=== PATIENT | female | born 1960 | race Caucasian/White ===

== ENCOUNTER 2016-05-18 08:49 | Outpatient (CLI) | payer OTHER | END 2016-05-18 08:50 | disposition home or self-care (01) | DX: Z00.00 Encounter for general adult medical examination without abnormal findings (principal); G25.81 Restless legs syndrome; M81.0 Age-related osteoporosis without current pathological fracture; E55.9 Vitamin D deficiency, unspecified; Z79.899 Other long term (current) drug therapy ==

== ENCOUNTER 2016-12-20 10:20 | Outpatient (CLI) | payer OTHER ==
--- NOTE | 2016-12-21 11:45 | Mammography Report ---
DIGITAL SCREENING MAMMOGRAM: 12/20/2016 COMPARISON: 05/27/2015, 05/20/2013, 11/16/2010, 01/18/2009, 01/13/2008. TECHNIQUE: Bilateral digital CC and MLO projections. FINDINGS: There are scattered fibroglandular densities. There is a stereotactic biopsy clip in the right upper inner quadrant. There is no dominant mass, architectural distortion, suspicious new micr ocalcifications, skin thickening, or interval change. IMPRESSION: NEGATIVE. BIRADS CATEGORY 1. SUGGEST RETURN TO ROUTINE SCREENING IN 12 MONTHS. STANDARD QUALIFYING STATEMENTS 1. This examination was reviewed with the aid of Computer-Aided Detection (CAD). 2. A negative or benign imaging report should not delay biopsy if clinically suspicious findings are present. Consider surgical consultation if warranted. More than 5% of cancers are not identified by i maging. 3. Dense breasts may obscure an underlying neoplasm. JOB #: [id number] EXT JOB #:[id number]
== END 2016-12-20 10:21 | disposition home or self-care (01) ==
LOC: DI 10:20
PROVIDERS: ATTEND Physician Assistant Medical
DX: Z12.31 Encounter for screening mammogram for malignant neoplasm of breast (principal)
CPT/HCPCS: 77067

== ENCOUNTER 2016-12-21 15:12 | Outpatient (CLI) | payer OTHER ==
--- NOTE | 2016-12-22 12:49 | DEXA Report ---
DEXA SCAN: 12/21/2016 CLINICAL HISTORY: Osteoporosis followup. TECHNIQUE: Dual energy x-ray absorptiometry (DXA) was performed on a [employer] system. Regions measured are the AP spine, femoral neck, and, if needed, forearm. COMPARISON: 10/07/2015. In accordance with the International Society for Clinical Densitometry (ISCD) guidelines, data from previous exams may be reanalyzed using current recommendations and techniques. This is done to allow a more accurate basis for comparison with the current study. FINDINGS The data for the lumbar spine is as follows: REGION BMD (g/cm/cm) T-SCORE Z-SCORE L1 0.845 -2.4 -1.1 L2 0.813 -3.2 -1.9 L3 0.927 -2.3 -1.0 L4 0.894 -2.6 -1.3 TOTAL 0.873 -2.6 -1.3 NOTE: All evaluable vertebrae are used for classification. The data for the hip is as follows: REGION BMD (g/cm/cm) T-SCORE Z-SCORE Neck 0.755 -2.0 -0.7 TOTAL 0.799 -1.7 -0.7 NOTE: The femoral neck or total proximal femur, whichever is lowest, is used for classification. DXA RESULTS SUMMARY: Spine SCAN DATE AGE BMD T-SCORE BMD CHANGE VS BASELINE BMD CHANGE VS PREVIOUS 12/21/2016 56 0[age]873 --- 0.073 9.1 10/07/2015 54 0.800 --- --- --- DXA RESULTS SUMMARY: Total hip SCAN DATE AGE BMD T-SCORE BMD CHANGE VS BASELINE BMD CHANGE VS PREVIOUS 12/21/2016 56 0[age]799 --- 0.034 4.4 10/07/2015 54 0.765 --- --- --- * Denotes significant change at the 95% confidence level. Denotes dissimilar scan types or analysis methods. IMPRESSION: THE WOR[employer] CLASSIFICATION BASED ON THE INTERNATIONAL REFERENCE STANDARDS IS OSTEOPOROSIS BASED ON THE LUMBAR SPINE. THE FRACTURE RISK IS HIGH. THERE HAS BEEN A 9.1% INCREASE IN BONE MINERAL DENSITY IN THE LUMBAR SPINE SINCE THE PRIOR STUDY. RECOMMENDATION: Patients with diagnosis of osteoporosis or osteopenia should have regular bone mineral density assessment. For those eligible for Medicare, routine testing is allowed once every 2 years. Testing frequency can be increased for patients who have rapidly progressing disease or for those who are receiving medical therapy to restore bone mass. COMMENT: World Health Organization (WHO) definitions for osteoporosis and osteopenia: NORMAL BMD: T-score at -1.0 or higher, fracture risk is low. OSTEOPENIA BMD: T-score between -1.0 and -2.5, fracture risk is increased. OSTEOPOROSIS BMD: T-score at -2.5 or lower, fracture risk high. National Osteoporosis Foundation recommends: 1. Obtain adequate dietary calcium (at least 1200 mg per day) and vitamin D (400 -800 international units per day). 2. Participate, as appropriate, in regular weightbearing and muscle- strengthening exercise. 3. Avoid tobacco use and reduce alcohol and caffeine intake. 4. For more detailed information see the website at www.NOF.org. MTDD
== END 2016-12-21 15:13 | disposition home or self-care (01) ==
LOC: DI 15:12
PROVIDERS: ATTEND Physician Assistant Medical
DX: M81.0 Age-related osteoporosis without current pathological fracture (principal)
CPT/HCPCS: 77080

== ENCOUNTER 2017-04-12 13:00 | Outpatient (CLI) | payer OTHER ==
--- NOTE | 2017-04-13 10:08 | Ultrasound Report ---
DATE OF SERVICE: 04/12/2017 THYROID ULTRASOUND: 04/12/2017 CLINICAL INDICATION: Left thyroid nodule. COMPARISON: 03/14/2016. TECHNIQUE: Real-time scanning was performed with customer engagement representative static images obtained. FINDINGS: The right lobe measures 5.0 x 1.3 x 0.7 cm, and the left lobe measures 5.0 x 1.6 x 1.2 cm. The isthmus measures 2 mm. Multiple bilateral cysts are again seen, with the largest, in the upper pole of the left lobe, measuring 2.0 x 1.6 x 1.5 cm. No suspicious solid thyroid nodule is seen. IMPRESSION: MULTIPLE THYROID CYSTS. NO SUSPICIOUS SOLID NODULE IS IDENTIFIED. NO SIGNIFICANT INTERVAL CHANGE. TD: 04/13/2017 11:07
== END 2017-04-12 13:01 | disposition home or self-care (01) ==
LOC: DI 13:00
PROVIDERS: ATTEND Physician Assistant Medical
DX: E04.2 Nontoxic multinodular goiter (principal)
CPT/HCPCS: 76536

== ENCOUNTER 2017-05-18 09:13 | Outpatient (CLI) | payer OTHER ==
[2017-05-18 09:27] LABS: BASOPHILS # (AUTO) 0.1 10^3/uL (0.0-0.1); EOSINOPHILS # (AUTO) 0.1 10^3/uL (0.0-0.7); LYMPHOCYTES # (AUTO) 1.4 10^3/uL (1.5-3.5); LYMPHOCYTES % (AUTO) 41.8 %; MEAN CORPUSCULAR HEMOGLOBIN 32.5 pg (27.0-31.0); MEAN CORPUSCULAR HGB CONC 33.9 g/dL (32.0-36.0); MEAN CORPUSCULAR VOLUME 95.8 fL (81.0-99.0); MEAN PLATELET VOLUME 7.5 fL (7.9-10.8); MONOCYTES # (AUTO) 0.3 10^3/uL (0.0-1.0); MONOCYTES % (AUTO) 9.4 %; NEUTROPHILS # (AUTO) 1.5 10^3/uL (1.5-6.6); NEUTROPHILS % (AUTO) 43.8 %; PLT - PLATELET COUNT 214 10^3/uL (130-450); RED BLOOD COUNT 4.62 10^6/uL (4.20-5.40); WHITE BLOOD COUNT 3.4 x10^3/uL (4.8-10.8)
[2017-05-18 09:44] LABS: ALBUMIN 4.5 g/dL (3.2-5.5); ALBUMIN/GLOBULIN RATIO 1.8 (1.0-2.2); ALKALINE PHOSPHATASE 47 IU/L (42-121); ALT ALANINE AMINOTRANSFERASE 15 IU/L (10-60); AST ASPARTATE AMINOTRANSFERASE 24 IU/L (10-42); BILIRUBIN,TOTAL 0.8 mg/dL (0.2-1.0); BUN - BLOOD UREA NITROGEN 14 mg/dL (6-20); CALCIUM 9.5 mg/dL (8.5-10.3); CARBON DIOXIDE - CO2 26 mmol/L (21-32); CHLORIDE 100 mmol/L (101-111); CHOL/HDL RATIO 3.5 (<4.4); CHOLESTEROL 186 mg/dL; CREATININE 0.7 mg/dL (0.4-1.0); GFR - MDRD 86 (>89); GLUCOSE 87 mg/dL (70-100); HDL CHOLESTEROL 53 mg/dL; LDL CHOLESTEROL,CALCULATED 112 mg/dL; LDL/HDL RATIO 2.1 (<4.4); SODIUM 138 mmol/L (135-145); VLDL CHOLESTEROL 21 mg/dL
== END 2017-05-18 09:14 | disposition home or self-care (01) ==
LOC: LAB 09:13
PROVIDERS: ATTEND Physician Assistant Medical
DX: Z00.00 Encounter for general adult medical examination without abnormal findings (principal); E55.9 Vitamin D deficiency, unspecified; M81.0 Age-related osteoporosis without current pathological fracture; E04.1 Nontoxic single thyroid nodule; Z79.899 Other long term (current) drug therapy
CPT/HCPCS: 36415; 80053; 80061; 82306; 83721; 84443; 85025

== ENCOUNTER 2017-11-20 14:57 | Outpatient (CLI) | payer OTHER ==
--- NOTE | 2017-11-20 16:39 | DEXA Report ---
Procedure Date: 11/20/2017 Accession Number: [id number] / [id number] Procedure: DEX - Dexa Spine and/or Hip CPT Code: FULL RESULT: EXAM: DUAL EMISSION X-RAY ABSORPTIOMETRY (DXA) SCAN EXAM DATE: 11/20/2017 03:32 PM. CLINICAL HISTORY: Prednisone use, osteoporosis . On Alendronate COMPARISON: 12/21/2016. ADDITIONAL PATIENT INFORMATION: None. TECHNIQUE: Dual energy x-ray absorptiometry (DXA) was performed on a [employer] System. Regions measured at the AP spine, femoral neck, and if needed, forearm. TECHNIQUE LIMITATIONS/EXCLUSIONS: None FINDINGS: Lumbar Spine: Bone mineral density 0.857 g/sq cm, T-score -2.7, Z-score -1.3. Bone mineral density change from previous: -1.8%. Femoral Neck: Bone mineral density 0.771 g/sq cm, T-score -1.9, Z-score -0.6. Total Hip: Bone mineral density 0.804 g/sq cm, T-score -1.6, Z-score -0.6. Bone mineral density change from previous: 0.6%. IMPRESSION: Osteoporosis. The fracture risk is high. World Health Organization (WHO) Reporting guidelines (based on lowest BMD) for postmenopausal and perimenopausal women, men age 50 years and older: Normal: T-score at or greater than -1.0 Osteopenia: T-score between -1.1 to -2.4 Osteoporosis: T-score at or less than -2.5 RADIA
== END 2017-11-20 14:58 | disposition home or self-care (01) ==
LOC: DI 14:57
PROVIDERS: ATTEND Physician Assistant Medical
DX: M81.0 Age-related osteoporosis without current pathological fracture (principal); Z79.899 Other long term (current) drug therapy
CPT/HCPCS: 77080

== ENCOUNTER 2018-01-17 08:00 | Outpatient (CLI) | payer OTHER ==
[2018-01-17 10:20] LABS: BASOPHILS % (AUTO) 1.4 %; EOSINOPHILS % (AUTO) 1.7 %; HGB - HEMOGLOBIN 14.7 g/dL (12.0-16.0); LYMPHOCYTES % (AUTO) 37.4 %; MEAN CORPUSCULAR HEMOGLOBIN 32.6 pg (27.0-31.0); MEAN CORPUSCULAR HGB CONC 34.4 g/dL (32.0-36.0); MEAN CORPUSCULAR VOLUME 94.9 fL (81.0-99.0); MEAN PLATELET VOLUME 8.2 fL (7.9-10.8); MONOCYTES # (AUTO) 0.3 10^3/uL (0.0-1.0); MONOCYTES % (AUTO) 9.5 %; NEUTROPHILS # (AUTO) 1.4 10^3/uL (1.5-6.6); PLT - PLATELET COUNT 207 10^3/uL (130-450); RED CELL DISTRIBUTION WIDTH 12.7 % (12.0-15.0); WHITE BLOOD COUNT 2.7 x10^3/uL (4.8-10.8)
[2018-01-17 10:36] LABS: ALBUMIN 4.5 g/dL (3.2-5.5); ALBUMIN/GLOBULIN RATIO 1.6 (1.0-2.2); ALKALINE PHOSPHATASE 53 IU/L (42-121); ALT ALANINE AMINOTRANSFERASE 14 IU/L (10-60); AST ASPARTATE AMINOTRANSFERASE 25 IU/L (10-42); BILIRUBIN,TOTAL 0.8 mg/dL (0.2-1.0); BUN - BLOOD UREA NITROGEN 9 mg/dL (6-20); CREATININE 0.7 mg/dL (0.4-1.0); GFR - MDRD 86 (>89); LIPASE 31 U/L (22-51); TOTAL PROTEIN 7.3 g/dL (6.7-8.2)
[2018-01-17 10:37] LABS: CRP - C-REACTIVE PROTEIN < 1.0 mg/dL (0-1.0)
[2018-01-17 10:41] LABS: PLATELET MORPHOLOGY RARE GIANT PLATELETS (NORMAL)
[2018-01-17 10:44] LABS: CALCIUM 9.5 mg/dL (8.5-10.3); CARBON DIOXIDE - CO2 31 mmol/L (21-32); CHLORIDE 103 mmol/L (101-111); GLUCOSE 89 mg/dL (70-100); SODIUM 142 mmol/L (135-145)
[2018-01-17 15:42] LABS: PLATELET ESTIMATE, MANUAL NORMAL (130-450,000) (NORMAL); RBC MORPHOLOGY (MULTIPLE) NORMAL APPEARANCE (NORMAL)
== END 2018-01-17 08:01 ==
LOC: LAB.R 08:00
PROVIDERS: ATTEND Physician Assistant Medical
DX: R10.84 Generalized abdominal pain (principal); R07.9 Chest pain, unspecified; R31.9 Hematuria, unspecified; E04.1 Nontoxic single thyroid nodule
CPT/HCPCS: 80053; 83690; 84443; 85025; 85651; 86140

== ENCOUNTER 2018-01-18 07:07 | Outpatient (CLI) | payer OTHER ==
[2018-01-18] MEDS ORDERED: IOPAMIDOL-300 100 ML VIAL ONE (07:20)
[2018-01-18] MEDS ORDERED: IOPAMIDOL-300 50 ML VIAL ONE (07:20)
[2018-01-18] MEDS ORDERED: IOPAMIDOL-300 100 ML VIAL IVP ONE (07:38)
[2018-01-18] MEDS ORDERED: IOPAMIDOL-300 50 ML VIAL PO ONE (07:38)
--- NOTE | 2018-01-18 08:40 | CT Report ---
Reason: ABDOMINAL PAIN, GENERALIZED, HEMATURIA, CHEST PAIN Procedure Date: 01/18/2018 Accession Number: [id number] / [id number] Procedure: CT - Abdomen/Pelvis W/ CPT Code: FULL RESULT: EXAM: CT ABDOMEN AND PELVIS EXAM DATE: 01/18/2018 08:03 AM. CLINICAL HISTORY: ABDOMINAL PAIN, GENERALIZED, HEMATURIA, CHEST PAIN. COMPARISONS: CT from 02/06/2014. Ultrasound from 08/26/2014 and 02/13/2013. TECHNIQUE: Routine helical CT imaging was performed through the abdomen and pelvis. IV contrast: 100 cc of Isovue-300. Enteric contrast: Positive. Reconstructions: Coronal and sagittal. In accordance with CT protocol optimization, one or more of the following dose reduction techniques were utilized for this exam: automated exposure control, adjustment of mA and/or KV based on patient size, or use of iterative reconstructive technique. FINDINGS: Lung Bases: Lung bases are clear. Included portions of the heart are unremarkable. Liver: Low-attenuation lesion in the posterior right lobe of the liver measuring 10 mm. This lesion was described as a hemangioma on the ultrasound from 02/06/2014. On the current study there is slight nodular enhancement along the inferior aspect of the lesion. Patent portal vein. No other hepatic lesions. Gallbladder/Bile Ducts: Status post cholecystectomy. No biliary ductal dilatation. Spleen: Normal. Pancreas: Normal. Adrenal Glands: Normal. Kidneys: Kidneys enhance symmetrically. Mid posterior right renal cyst is seen measuring 17 mm also seen in the lower pole of the right kidney measuring 6 mm. No nephrolithiasis. No hydronephrosis. No ureteral dilatation or ureteral calculi. Peritoneal Cavity/Bowel: Stomach is mild to moderately distended and unremarkable. No small bowel obstruction or small bowel wall thickening. No free air. The majority of the small bowel is decompressed. Terminal ileum is unremarkable. Small to moderate volume of stool is seen in the colon. No diverticulitis. No enlarged retroperitoneal or mesenteric lymph nodes. The appendix is well visualized and normal. Pelvic Organs: No adnexal masses. Heterogeneous lesion is seen along the right lower uterine segment of the uterus measuring 1 cm which may represent a uterine myoma. Trace pelvic free fluid. No pelvic adenopathy. Urinary bladder is mildly distended. No bladder calculi. No distinct bladder wall thickening. Vasculature: Vascular calcifications. No aneurysm. Mesenteric vasculature is patent. Bones: Degenerative changes of lower thoracic and lumbar spine. Lumbar facet arthropathy. Mild degenerative changes of both hip joints. Changes are seen from prior internal fixation of the proximal right femur. No bony lesions. Other: None. IMPRESSION: 1. Normal appendix. 2. Small to moderate volume of stool in the colon. No bowel obstruction. No bowel wall thickening. 3. Right renal cysts. No nephrolithiasis. No hydronephrosis. No bladder calculi. No focal bowel or bladder wall thickening noting that the urinary bladder is only mildly distended. 4. Status post cholecystectomy. 5. Stable right hepatic lobe 10 mm lesion previously reported as a hemangioma. RADIA
== END 2018-01-18 07:08 | disposition home or self-care (01) ==
LOC: DI 07:07
PROVIDERS: ATTEND Physician Assistant Medical
DX: R10.84 Generalized abdominal pain (principal); R31.0 Gross hematuria; R07.9 Chest pain, unspecified; N28.1 Cyst of kidney, acquired; D18.03 Hemangioma of intra-abdominal structures; Z90.49 Acquired absence of other specified parts of digestive tract
CPT/HCPCS: 74177; Q9967

== ENCOUNTER 2018-02-14 11:08 | Outpatient (CLI) | payer OTHER ==
--- NOTE | 2018-02-14 12:30 | XRAY Report ---
Reason: THYROID NODULE, LEFT Procedure Date: 02/14/2018 Accession Number: [id number] / [id number] Procedure: XR - Chest 2 View X-Ray CPT Code: 86631 FULL RESULT: EXAM: CHEST RADIOGRAPHY EXAM DATE: 02/14/2018 11:34 AM. CLINICAL HISTORY: Dull chest pain for 1 month. COMPARISON: Chest 1 view 01/28/2014 8:03 PM. TECHNIQUE: 2 views. FINDINGS: Lungs/Pleura: There is a stable 8 mm nodule superimposing over the left mid lung compared to 01/28/2014. Stable hyperlucency to the upper lung zones with mild pleural-parenchymal scarring change. No confluent airspace opacity, effusion or extra ventilatory air. Mediastinum: Heart and mediastinal contours are unremarkable. Other: None. IMPRESSION: 1. Stable 8 mm left pulmonary nodule since 2013, consistent with benign etiology. 2. Stable stigmata of probable upper lobe emphysema. 3. No infiltrates. RADIA
--- NOTE | 2018-02-14 18:56 | Ultrasound Report ---
Reason: THYROID NODULE, LEFT Procedure Date: 02/14/2018 Accession Number: [id number] / [id number] Procedure: US - Head or Neck Soft Tissue CPT Code: FULL RESULT: EXAM: THYROID ULTRASOUND EXAM DATE: 02/14/2018 12:19 PM. CLINICAL HISTORY: THYROID NODULE, LEFT. COMPARISON: HEAD OR NECK SOFT TISSUE 04/12/2017 12:54 PM. TECHNIQUE: Real time sonographic imaging of the thyroid was performed by the complaint specialist. Multiple mechanical service representative static images were saved for review. FINDINGS: THYROID GLAND: Right Lobe: 4.7 x 1.6 x 1.1 cm, volume 4 cc. Normal background echotexture. Right Lobe Nodules: Stable subcentimeter cysts and hypoechoic nodules. Left Lobe: 4.7 x 1.9 x 1.4 cm, volume 7 cc. Normal background echotexture. Left Lobe Nodules: The cyst in the upper pole of the left lobe is no complicated, with likely blood products centrally. It has increased slightly in size, now measuring 2.1 x 1.6 x 1.5 cm (previously 2.0 x 1.6 x 1.5 cm). Other subcentimeter cysts and hypoechoic nodules are again noted. Isthmus: 0.1 cm AP. Isthmic Nodules: None. LYMPH NODES: No adenopathy demonstrated in the central or lateral compartment. OTHER: None. IMPRESSION: Dominant cyst in the upper pole of the left lobe is now complicated, with echogenic material in the central portion. Management recommendations are based on 2015 [place] [employer] Management Guidelines for Adult Patients with Thyroid Nodules and Differentiated Thyroid Cancer. RADIA
== END 2018-02-14 11:09 | disposition home or self-care (01) ==
LOC: DI 11:08
PROVIDERS: ATTEND Physician Assistant Medical
DX: E04.1 Nontoxic single thyroid nodule (principal); R91.1 Solitary pulmonary nodule
CPT/HCPCS: 71046; 76536

== ENCOUNTER 2018-02-28 13:12 | Outpatient (CLI) | payer OTHER ==
[2018-02-28] MEDS ORDERED: BUFFERED LIDOCAINE 10 ML SYRINGE IU ONE (14:32)
--- NOTE | 2018-02-28 15:55 | Ultrasound Report ---
Reason: THYROID NODULE,LEFT Procedure Date: 02/28/2018 Accession Number: [id number] / [id number] Procedure: US - Fine Needle Aspiration CPT Code: FULL RESULT: PROCEDURE: ULTRASOUND GUIDED BIOPSY, THYROID FNA PREOPERATIVE DIAGNOSIS: Mass in left thyroid nodule, possibly malignant. POSTOPERATIVE DIAGNOSIS: Same TECHNIQUE: Following written and oral informed consent including procedure risks and alternatives, the patient was brought to the ultrasound suite and positioned. Using local anesthesia, sterile technique, and direct ultrasound control, a series of 4 FNA needles was advanced to the mass. An FNA aspiration/shaving technique was utilized. Each needle was removed. The patient tolerated the procedure well and there were no immediate complications. ANESTHESIA: Local only. SECTION GANG: Dr. Salinas. ESTIMATED BLOOD LOSS: Minimal FLUOROSCOPY TIME: None. COMPLICATIONS: None. CONDITION: Good. SPECIMEN: Fine-needle aspiration x 4. IMPLANTS: None. FINDINGS: Real-time ultrasound performed with static images saved to the PACS demonstrating the needle directed into the mass. IMPRESSION: Uncomplicated ultrasound guided fine needle aspiration biopsy as described. Pathology results will be reported separately. RADIA
== END 2018-02-28 13:13 | disposition home or self-care (01) ==
LOC: DI 13:12
PROVIDERS: ATTEND Physician Assistant Medical
DX: E04.1 Nontoxic single thyroid nodule (principal)
CPT/HCPCS: 10022

== ENCOUNTER 2018-03-04 19:18 | Emergency (ER) | payer OTHER ==
--- NOTE | 2018-03-04 21:15 | ED Physician Documentation ---
PD HPI NECK PAIN - Stated complaint Stated Complaint: NECK/BACK PX - Chief complaint Chief Complaint: Back Pain - History obtained from History obtained from: Patient - History of Present Illness Timing - onset: Chronic (various timeframes (see below)) Pain level now: 10 Location: Upper, Mid, Lower, Other (midline, radiating bilaterally (R>L)) Quality: Pain Associated symptoms: No: Fever, Weakness, Numbness, Incontinent of urine, Unable to urinate, Incontinent of stool Improves with: Rest Worsened by: Movement Recently seen: Not recently seen - Additional information Additional information: c/o back pain, length of her entire back, mostly midline but also radiates bilaterally, R>L. This has been going on for years, worse past few months. She usually takes two percocet in the evening for this. Presents due to pain being worse. Also c/o nausea x 1 week. Denies vomiting. She says she had CT a month ago (records indicate it was 01/18/18) of A/P for "stomach issues" (per patient), without notable abnormality found. Review of Systems Constitutional: denies: Fever, Chills, Sweats Cardiac: reports: Reviewed and negative Respiratory: reports: Reviewed and negative GI: reports: Abdominal Pain, Nausea. denies: Vomiting : reports: Frequency. denies: Dysuria Musculoskeletal: reports: Neck pain, Back pain. denies: Extremity pain, Joint pain Neurologic: denies: Generalized weakness, Focal weakness, Numbness PD PAST MEDICAL HISTORY - Past Medical History Past Medical History: Yes Cardiovascular: None Respiratory: None Neuro: None Endocrine/Autoimmune: None GI: GERD HEENT: None Psych: None Musculoskeletal: Osteoarthritis, Osteoporosis, Fatigue, Scoliosis, Chronic back pain Derm: None - Past Surgical History Past Surgical History: No General: Cholecystectomy Ortho: Other HEENT: Tonsil/Adenoidectomy - Present Medications Home Medications: Ambulatory Orders Medication Instructions Recorded Confirmed Gabapentin 300 mg PO QPM 08/07/15 08/07/15 oxyCODONE/ACET 5/325 [Percocet 5 1 tab PO DAILY PRN 08/07/15 08/07/15 mg/325 mg] Metoclopramide [Reglan] 10 mg PO Q6H PRN #14 tablet 03/04/18 predniSONE [Prednisone] 40 mg PO DAILY 3 Days #8 tablet 03/04/18 - Allergies Allergies/Adverse Reactions: Allergies Allergy/AdvReac Type Severity Reaction Status Date / Time Sulfa (Sulfonamide Allergy Intermediate Hives Verified 03/04/18 19:35 Antibiotics) - Social History Does the pt smoke?: No Smoking Status: Never smoker Does the pt drink ETOH?: No Does the pt have substance abuse?: No - Immunizations Immunizations are current?: Yes - POLST Patient has POLST: No PD ED PE NORMAL - Vitals Vital signs reviewed: Yes - General General: Alert and oriented X 3, No acute distress, Well developed/nourished - HEENT HEENT: Moist mucous membranes - Neck Neck: Supple, no meningeal sign - Cardiac Cardiac: RRR, No murmur - Respiratory Respiratory: No respiratory distress, Clear bilaterally - Abdomen Abdomen: Soft - Back Back: No CVA TTP, No spinal TTP - Derm Derm: Normal color, Warm and dry, No rash - Neuro Neuro: Alert and oriented X 3, heel seater 2-12 intact, No motor deficit, No sensory deficit, Normal speech Results - Vitals Vitals: Vital Signs - 24 hr 03/04/18 03/04/18 03/04/18 19:32 20:00 20:33 Temperature 36.4 C L Heart Rate 75 Respiratory 16 16 17 Rate Blood Pressure 137/70 H O2 Saturation 99 03/04/18 03/04/18 03/04/18 21:55 22:32 23:02 Temperature 36.4 C L Heart Rate 64 Respiratory 17 17 16 Rate Blood Pressure 142/86 H O2 Saturation 100 03/04/18 23:24 Temperature Heart Rate Respiratory 16 Rate Blood Pressure O2 Saturation Oxygen O2 Source Room air - Labs Labs: Laboratory Tests 03/04/18 03/04/18 21:50 21:50 WBC 3.3 L RBC 4.76 Hgb 15.0 Hct 45.5 MCV 95.7 MCH 31.5 H MCHC 32.9 RDW 12.9 Plt Count 186 MPV 8.5 Neut # (Auto) 1.7 Lymph # (Auto) 1.1 L [place] # (Auto) 0.4 Eos # (Auto) 0.1 Baso # (Auto) 0.0 Absolute Nucleated RBC 0.00 Nucleated RBC % 0.1 Sodium 138 Potassium 3.8 Chloride 102 Carbon Dioxide 28 Anion Gap 8.0 BUN 15 Creatinine 0.8 Estimated GFR (MDRD) 73 L Glucose 107 H Calcium 9.0 Total Bilirubin 0.6 AST 24 ALT 15 Alkaline Phosphatase 65 Total Protein 6.5 L Albumin 3.9 Globulin 2.6 Albumin/Globulin Ratio 1.5 Lipase 45 PD MEDICAL DECISION MAKING - ED course Complexity details: reviewed results, re-evaluated patient, considered differential, d/w patient ED course: On reevaluation, patient reported feeling some improvement with her back pain and feels she can go home and take her usual percocet and get adequate relief. She did not take the decadron because 1) she still had some nausea and 2) she seems to recall having some difficulty sleeping with steroids in the past. I offered another dose of zofran or else reglan for the nausea; she says the zofran did not help at all and thus given reglan. Again, she feels well enough to go home and thus won't wait for the reglan's effect. Will return if worse. Results of tests reviewed, including low WBC (which she has had for a few months now), and I instructed her to discuss this with her doctor to make sure they are aware of the result. Departure - Departure Disposition: 01 Home, Self Care Clinical Impression: Back pain, Nausea Condition: Good Instructions: ED Neck Back Pain General, ED Nausea Vomiting Follow-Up: Dari Cummings PA-C [Primary Care Provider] - Within 1 week Prescriptions: Metoclopramide [Reglan] 10 mg PO Q6H PRN #14 tablet PRN Reason: Nausea / Vomiting predniSONE [Prednisone] 40 mg PO DAILY 3 Days #8 tablet Discharge Date/Time: 03/04/18 23:25
[2018-03-04] MEDS ORDERED: DEXAMETHASONE 10 MG/ML VIAL PO STA (21:42)
[2018-03-04] MEDS ORDERED: ONDANSETRON ODT 4 MG TABLET TL STA (21:42)
[2018-03-04] MEDS ORDERED: KETOROLAC 60 MG/2 ML VIAL IM STA (21:42)
[2018-03-04] MEDS ORDERED: CHERRY SYRUP 10 ML UDC PO ONE (21:47)
[2018-03-04 21:56] LABS: BASOPHILS % (AUTO) 1.4 %; EOSINOPHILS # (AUTO) 0.1 10^3/uL (0.0-0.7); EOSINOPHILS % (AUTO) 1.8 %; LYMPHOCYTES # (AUTO) 1.1 10^3/uL (1.5-3.5); MEAN CORPUSCULAR HEMOGLOBIN 31.5 pg (27.0-31.0); MEAN CORPUSCULAR HGB CONC 32.9 g/dL (32.0-36.0); MEAN CORPUSCULAR VOLUME 95.7 fL (81.0-99.0); MEAN PLATELET VOLUME 8.5 fL (7.9-10.8); MONOCYTES # (AUTO) 0.4 10^3/uL (0.0-1.0); MONOCYTES % (AUTO) 12.9 %; NEUTROPHILS # (AUTO) 1.7 10^3/uL (1.5-6.6); NEUTROPHILS % (AUTO) 50.9 %; PLT - PLATELET COUNT 186 10^3/uL (130-450); RED BLOOD COUNT 4.76 10^6/uL (4.20-5.40); RED CELL DISTRIBUTION WIDTH 12.9 % (12.0-15.0); WHITE BLOOD COUNT 3.3 x10^3/uL (4.8-10.8)
[2018-03-04 22:08] LABS: ALBUMIN 3.9 g/dL (3.2-5.5); ALBUMIN/GLOBULIN RATIO 1.5 (1.0-2.2); BILIRUBIN,TOTAL 0.6 mg/dL (0.2-1.0); CREATININE 0.8 mg/dL (0.4-1.0); TOTAL PROTEIN 6.5 g/dL (6.7-8.2)
[2018-03-04 23:02] VITALS: BP 142/86
[2018-03-04] MEDS ORDERED: METOCLOPRAMIDE 10 MG TABLET PO STA (23:16)
== END 2018-03-04 23:25 | disposition home or self-care (01) ==
LOC: ED 19:18
DX: G89.29 Other chronic pain (principal); M54.9 Dorsalgia, unspecified; R11.0 Nausea; D72.9 Disorder of white blood cells, unspecified
CPT/HCPCS: 36415; 80053; 83690; 85025; 96372; 99283; A9270; Q0162

== ENCOUNTER 2018-03-15 15:35 | Outpatient (CLI) | payer OTHER ==
--- NOTE | 2018-03-17 21:57 | MRI Report ---
Reason: CERVICALGIA, CHRONIC, THORACIC BACK PAIN Procedure Date: 03/15/2018 Accession Number: [id number] / [id number] Procedure: MRI - Thoracic Spine W/O CPT Code: FULL RESULT: EXAM: MRI THORACIC SPINE WITHOUT CONTRAST. EXAM DATE: 03/15/2018 04:53 PM. CLINICAL HISTORY: Cervicalgia, chronic, thoracic back pain. COMPARISONS: Thoracic spine without 10/20/2015 1:15 PM. TECHNIQUE: Multiplanar, multisequence T1-weighted and fluid-sensitive sequences of the thoracic spine from C7 to L1 without contrast. Other: None. FINDINGS: Spinal Canal: A small syrinx versus prominent central canal is again demonstrated beginning at T3-T4 and extending to the conus medullaris. On the prior MRI, axial images were not acquired below the T9 level on the T2 sequence. Based on sagittal images, these findings are likely stable. Alignment: There is no spondylolisthesis. Bone Marrow: An osseous hemangioma is again noted in the T11 vertebral body, a benign finding. No new areas of bone marrow edema have developed since the prior MRI. Disk Levels/Facets: A tiny right paracentral protrusion at T3-T4 and a small central protrusion at T11-T12 are stable. There is no spinal canal or foraminal stenosis in the thoracic spine. Musculature: Normal. No edema or fatty atrophy. Other: A small right renal cyst is incidentally noted. There is suggestion of a 1 cm hepatic cyst. IMPRESSION: 1. No significant interval change compared to the thoracic spine MRI from 10/20/2015. 2. Stable small syrinx versus prominent central canal in much of the thoracic spine. 3. No worsening degenerative changes. 4. No worsening spinal canal or foraminal stenosis. RADIA
--- NOTE | 2018-03-17 21:57 | MRI Report ---
Reason: CERVICALGIA, CHRONIC, THORACIC BACK PAIN Procedure Date: 03/15/2018 Accession Number: [id number] / [id number] Procedure: MRI - Cervical Spine W/O CPT Code: FULL RESULT: EXAM: MRI CERVICAL SPINE WITHOUT CONTRAST EXAM DATE: 03/15/2018 04:23 PM. CLINICAL HISTORY: Cervicalgia, chronic, thoracic back pain. COMPARISONS: Cervical spine 01/27/2015. TECHNIQUE: Multiplanar, multisequence T1-weighted and fluid-sensitive sequences of the cervical spine without contrast. Other: None. FINDINGS: Neurologic Structures: The visualized posterior fossa structures are unremarkable. There has been interval development of a small syrinx at C5-C6 measuring 2 mm (image 6, series 301; image 11, series 801). Alignment: Retrolisthesis at C4-C5 measures 1 mm and at C5-C6 measures 2 mm. These findings are stable. Bone Marrow: No gross fractures or bone lesions. No marrow edema. Interspace Levels/Facets: C1-C2: Unremarkable. C2-C3: Worsening right-sided facet arthropathy now results in moderate right foraminal narrowing, previously mild. The spinal canal and left foramen are patent. C3-C4: There is severe right foraminal narrowing due to uncovertebral hypertrophy and facet arthropathy. The spinal canal and left foramen are patent. These findings are stable. C4-C5: A disk bulge results in mild spinal canal stenosis without impingement of the spinal cord. There is mild bilateral foraminal narrowing due to uncovertebral hypertrophy. These findings are stable. C5-C6: A posterior disk osteophyte complex results in moderate spinal canal stenosis with flattening of the ventral cord but without spinal cord impingement. There is moderate bilateral foraminal narrowing due to uncovertebral hypertrophy, worse on the left. These findings are stable. C6-C7: Unremarkable. C7-T1: Unremarkable. Musculature: Normal. No edema or fatty atrophy. Other: The paravertebral and prevertebral soft tissues are normal. IMPRESSION: 1. Compared to the cervical spine MRI from 01/27/2015, interval development of a focal syrinx at C5-C6 measures 2 mm. 2. Multilevel degenerative changes are again noted in the mid cervical spine without evidence of worsening spinal canal stenosis. 3. Worsening right-sided facet arthropathy at C2-C3 now results in moderate right foraminal narrowing, previously mild. RADIA
== END 2018-03-15 15:36 | disposition home or self-care (01) ==
LOC: DI 15:35
PROVIDERS: ATTEND Physician Assistant Medical
DX: M51.24 Other intervertebral disc displacement, thoracic region (principal); M47.9 Spondylosis, unspecified; M50.321 Other cervical disc degeneration at C4-C5 level; M43.12 Spondylolisthesis, cervical region; M48.02 Spinal stenosis, cervical region
CPT/HCPCS: 72141; 72146

== ENCOUNTER 2018-04-08 09:30 | Outpatient (CLI) | payer OTHER ==
[2018-04-08 09:43] LABS: BASOPHILS % (AUTO) 1.2 %; EOSINOPHILS # (AUTO) 0.1 10^3/uL (0.0-0.7); EOSINOPHILS % (AUTO) 1.7 %; HGB - HEMOGLOBIN 16.7 g/dL (12.0-16.0); LYMPHOCYTES # (AUTO) 0.9 10^3/uL (1.5-3.5); MEAN CORPUSCULAR HEMOGLOBIN 31.7 pg (27.0-31.0); MEAN CORPUSCULAR HGB CONC 33.8 g/dL (32.0-36.0); MEAN CORPUSCULAR VOLUME 93.9 fL (81.0-99.0); MEAN PLATELET VOLUME 7.7 fL (7.9-10.8); MONOCYTES # (AUTO) 0.4 10^3/uL (0.0-1.0); MONOCYTES % (AUTO) 9.3 %; NEUTROPHILS # (AUTO) 2.5 10^3/uL (1.5-6.6); NEUTROPHILS % (AUTO) 64.8 %; PLT - PLATELET COUNT 242 10^3/uL (130-450); RED BLOOD COUNT 5.27 10^6/uL (4.20-5.40); RED CELL DISTRIBUTION WIDTH 13.3 % (12.0-15.0); WHITE BLOOD COUNT 3.9 x10^3/uL (4.8-10.8)
== END 2018-04-08 09:31 | disposition home or self-care (01) ==
LOC: LAB 09:30
PROVIDERS: ATTEND Physician Assistant Medical
DX: D72.819 Decreased white blood cell count, unspecified (principal)
CPT/HCPCS: 36415; 85025

== ENCOUNTER 2020-08-19 08:00 | Outpatient (CLI) | payer OTHER ==
[2020-08-19 12:01] LABS: BASOPHILS # (AUTO) 0.1 10^3/uL (0.0-0.1); BASOPHILS % (AUTO) 0.7 %; EOSINOPHILS # (AUTO) 0.1 10^3/uL (0.0-0.7); EOSINOPHILS % (AUTO) 0.8 %; HCT - HEMATOCRIT 50.9 % (37.0-47.0); HGB - HEMOGLOBIN 16.2 g/dL (12.0-16.0); LYMPHOCYTES # (AUTO) 1.5 10^3/uL (1.5-3.5); LYMPHOCYTES % (AUTO) 20.1 %; MEAN CORPUSCULAR HEMOGLOBIN 30.9 pg (27.0-31.0); MEAN CORPUSCULAR HGB CONC 31.8 g/dL (32.0-36.0); MEAN CORPUSCULAR VOLUME 97.1 fL (81.0-99.0); MEAN PLATELET VOLUME 10.6 fL (7.9-10.8); MONOCYTES # (AUTO) 0.5 10^3/uL (0.0-1.0); MONOCYTES % (AUTO) 7.2 %; NEUTROPHILS # (AUTO) 5.1 10^3/uL (1.5-6.6); NEUTROPHILS % (AUTO) 70.5 %; PLT - PLATELET COUNT 264 10^3/uL (130-450); RED BLOOD COUNT 5.24 10^6/uL (4.20-5.40); RED CELL DISTRIBUTION WIDTH 13.2 % (12.0-15.0); WHITE BLOOD COUNT 7.3 x10^3/uL (4.8-10.8)
[2020-08-19 12:33] LABS: ALBUMIN 4.3 g/dL (3.2-5.5); ALBUMIN/GLOBULIN RATIO 1.7 (1.0-2.2); ALKALINE PHOSPHATASE 54 IU/L (42-121); ALT ALANINE AMINOTRANSFERASE 13 IU/L (10-60); AST ASPARTATE AMINOTRANSFERASE 19 IU/L (10-42); BILIRUBIN,TOTAL 0.7 mg/dL (0.2-1.0); BUN - BLOOD UREA NITROGEN 10 mg/dL (6-20); CARBON DIOXIDE - CO2 34 mmol/L (21-32); CHLORIDE 100 mmol/L (101-111); CHOL/HDL RATIO 3.4 (<4.4); CHOLESTEROL 228 mg/dL; CREATININE 0.9 mg/dL (0.4-1.0); GFR - MDRD 64 (>89); GLUCOSE 90 mg/dL (70-100); HDL CHOLESTEROL 67 mg/dL; LDL CHOLESTEROL,CALCULATED 111 mg/dL; LDL/HDL RATIO 1.7 (<4.4); POTASSIUM 4.2 mmol/L (3.5-5.0); SODIUM 141 mmol/L (135-145); TOTAL PROTEIN 6.9 g/dL (6.7-8.2); TRIGLYCERIDES 249 mg/dL; VLDL CHOLESTEROL 50 mg/dL
[2020-08-19 12:35] LABS: THYROID STIMULATING HORMONE 2.88 uIU/mL (0.34-5.60)
[2020-08-19 12:37] LABS: FREE T3 4.23 pg/mL (2.5-3.9); FREE T4 (FREE THYROXINE) 0.83 ng/dL (0.58-1.64)
== END 2020-08-19 23:59 | disposition home or self-care (01) ==
LOC: LAB.WCP 08:00
PROVIDERS: ATTEND Family Medicine
DX: K21.9 Gastro-esophageal reflux disease without esophagitis (principal); R03.0 Elevated blood-pressure reading, without diagnosis of hypertension; M48.02 Spinal stenosis, cervical region; M54.2 Cervicalgia; G89.29 Other chronic pain
CPT/HCPCS: 36415; 80053; 80061; 83721; 84439; 84443; 84481; 85025

== ENCOUNTER 2021-06-01 07:45 | Emergency (ER) | payer OTHER ==
--- NOTE | 2021-06-01 09:06 | ED Physician Documentation ---
History of Present Illness - Stated complaint Stated Complaint: L ANKLE PX, R RIB CAGE PX - Chief complaint Chief Complaint: Trauma Ext - History obtained from History obtained from: Patient - Additonal information Additional information: The patient comes to the emergency department with chief complaint of left ankle and right rib pain. She states that yesterday, she squatted down and rolled her left ankle, noticing a sudden pain and "pop". She states she also felt a pop in her right ribs the same time as she twisted during the resultant fall. Patient states that she has had pain and swelling in the left ankle since. She notices the pain in her right ribs with certain movements, but not so much with a deep breath. No prior history to either her ankle or her ribs. No shortness of breath. No other complaints at this time. Review of Systems Ten Systems: 10 systems reviewed and negative Constitutional: reports: Reviewed and negative Eyes: reports: Reviewed and negative Ears: reports: Reviewed and negative Nose: reports: Reviewed and negative Throat: reports: Reviewed and negative Cardiac: reports: Chest pain / pressure Respiratory: reports: Reviewed and negative GI: reports: Reviewed and negative : reports: Reviewed and negative Skin: reports: Reviewed and negative Musculoskeletal: reports: Joint pain, Joint swelling, Pain with weight bearing Neurologic: reports: Reviewed and negative Psychiatric: reports: Reviewed and negative Endocrine: reports: Reviewed and negative Immunocompromised: reports: Reviewed and negative PD PAST MEDICAL HISTORY - Past Medical History Cardiovascular: None Respiratory: None Neuro: None Endocrine/Autoimmune: None GI: GERD HEENT: None Psych: None Musculoskeletal: Osteoarthritis, Osteoporosis, Fatigue, Scoliosis, Chronic back pain Derm: None - Past Surgical History Past Surgical History: No General: Cholecystectomy Ortho: Other HEENT: Tonsil/Adenoidectomy - Present Medications Home Medications: Ambulatory Orders Medication Instructions Recorded Confirmed Gabapentin 300 mg PO QPM 08/07/15 08/07/15 oxyCODONE/ACET 5/325 [Percocet 5 1 tab PO DAILY PRN 08/07/15 08/07/15 mg/325 mg] Metoclopramide [Reglan] 10 mg PO Q6H PRN #14 tablet 03/04/18 predniSONE [Prednisone] 40 mg PO DAILY 3 Days #8 tablet 03/04/18 - Allergies Allergies/Adverse Reactions: Allergies Allergy/AdvReac Type Severity Reaction Status Date / Time Sulfa (Sulfonamide Allergy Intermediate Hives Verified 06/01/21 08:18 Antibiotics) - Social History Does the pt smoke?: No Smoking Status: Never smoker Does the pt drink ETOH?: No Does the pt have substance abuse?: No - Immunizations Immunizations are current?: Yes - POLST Patient has POLST: No PD ED PE NORMAL - Vitals Vital signs reviewed: Yes - General General: Alert and oriented X 3, No acute distress, Well developed/nourished - HEENT HEENT: Atraumatic, PERRL, EOMI, Moist mucous membranes - Neck Neck: Supple, no meningeal sign - Cardiac Cardiac: RRR, No murmur, Strong equal pulses - Respiratory Respiratory: No respiratory distress, Clear bilaterally - Derm Derm: Warm and dry, No rash, Other (Contusion at left lateral ankle, otherwise normal color) - Extremities Extremities: No deformity, Other (Moderate edema of left ankle, surrounding lateral malleolus. Mild contusion. No deformity.) - Neuro Neuro: Alert and oriented X 3, time clock mechanic 2-12 intact, No motor deficit, No sensory deficit, Normal speech - Psych Psych: Normal mood, Normal affect PD ED PE EXPANDED - Free text exam Free text exam: Chest wall tenderness anterior and laterally around right ribs 5 through 7. No crepitus or deformity Results - Vitals Vitals: Vital Signs - 24 hr 06/01/21 08:13 Temperature 37 C Heart Rate 76 Respiratory 12 Rate Blood Pressure 151/99 H O2 Saturation 100 Oxygen O2 Source Room air - Rads (name of study) Left ankle x-ray series Radiology: Final report received, EMP read indepedently, See rad report (Negative) Right rib and chest x-ray Radiology: Final report received, EMP read indepedently, See rad report (No acute findings) PD MEDICAL DECISION MAKING - ED course Complexity details: reviewed results, re-evaluated patient, considered differential, d/w patient ED course: X-rays were unremarkable in the emergency department. The patient was placed in an air splint. We have discussed home management of symptoms as well as the usual indications for return. Departure - Departure Disposition: 01 Home, Self Care Clinical Impression: Ankle sprain Qualifiers: Encounter type: initial encounter Involved ligament of ankle: unspecified ligament Laterality: right Qualified Code(s): S93.401A - Sprain of unspecified ligament of right ankle, initial encounter Strain of chest wall Qualifiers: Encounter type: initial encounter Qualified Code(s): S29.011A - Strain of muscle and tendon of front wall of thorax, initial encounter Condition: Stable Instructions: ED Sprain Ankle
--- NOTE | 2021-06-01 09:21 | XRAY Report ---
PROCEDURE: Ankle 3 View LT INDICATIONS: injury/pain TECHNIQUE: 3 views of the ankle were acquired. COMPARISON: None FINDINGS: Bones: There is a curvilinear ossification over the dorsal aspect of the anterior talus seen only on the lateral view. There is overlying soft tissue edema. There is also soft tissue swelling of the ank le. No other fracture identified. Joint spaces are maintained. Ankle mortise is normally aligned. N o suspicious bony lesions. Soft tissues: No tibiotalar joint effusion. Achilles tendon appears normal. IMPRESSION: Curvilinear ossification over the anterior, dorsal talus which may represent a small avu lsion fracture fragment. There is overlying soft tissue edema. Recommend correlating with clinical ex amination for location of point tenderness. Reviewed by: Carlos Hammer MD on 06/01/2021 8:20 AM [facility] Approved by: Carlos Hammer MD on 06/01/2021 8:20 AM [facility] Station ID: [id number]
--- NOTE | 2021-06-01 09:26 | XRAY Report ---
PROCEDURE: Ribs w/PA Chest RT INDICATIONS: INJURY/PAIN TECHNIQUE: 2 views of the right ribs were acquired, along with a single view chest. COMPARISON: 02/14/2018 FINDINGS: Surgical changes and devices: None. Bones and chest wall: No fractures or dislocations. No suspicious bony lesions. Overlying soft tis sues appear unremarkable. Lungs and pleura: No pleural effusions or pneumothorax. Stable subcentimeter pulmonary nodule in the left midlung zone. Lungs are otherwise clear. Mediastinum: Mediastinal contours appear normal. Heart size is normal. IMPRESSION: Chest without acute cardiopulmonary abnormalities. No focal airspace disease. No acute, displaced rib fractures visualized. Reviewed by: Carlos Hammer MD on 06/01/2021 8:25 AM [facility] Approved by: Carlos Hammer MD on 06/01/2021 8:25 AM [facility] Station ID: [id number]
[2021-06-01 10:06] VITALS: BP 168/75
== END 2021-06-01 10:10 | disposition home or self-care (01) ==
LOC: ED 07:45
DX: S93.401A Sprain of unspecified ligament of right ankle, initial encounter (principal); S29.011A Strain of muscle and tendon of front wall of thorax, initial encounter; X50.1XXA Overexertion from prolonged static or awkward postures, initial encounter
CPT/HCPCS: 99282; 99284

== ENCOUNTER 2021-06-29 08:00 | Outpatient (CLI) | payer OTHER | END 2021-06-29 23:59 | LOC: LAB 08:00 | PROVIDERS: ATTEND Nurse Practitioner | DX: U07.1 COVID-19 (principal) ==

== ENCOUNTER 2021-07-04 13:04 | Emergency (ER) | payer OTHER ==
[2021-07-04] MEDS ORDERED: SODIUM CHLORIDE 0.9% 2,000 ML IV STA (13:39)
--- NOTE | 2021-07-04 13:41 | ED Physician Documentation ---
History of Present Illness - Stated complaint Stated Complaint: c+,headache,diarrhea,soa - Chief complaint Chief Complaint: General - History obtained from History obtained from: Patient - History of Present Illness Timing: How many days ago (8) Pain level max: 4 Pain level now: 3 - Additonal information Additional information: Patient is a 60-year-old female who presents to the emergency department stating she first became sick about 8 days ago. Has had 2 Covid positive test since that time. No fevers. Does have body aches and diarrhea. Feeling lightheaded, weak and occasional headaches. She has had both her Covid vaccinations and a booster vaccine. No vomiting. No abdominal pain. Mild cough. No chest pain. Better with rest, worse with standing up quickly Review of Systems Ten Systems: 10 systems reviewed and negative Constitutional: denies: Fever, Chills Nose: denies: Rhinorrhea / runny nose, Congestion GI: reports: Diarrhea (daily, non-bloody). denies: Vomiting, Hematemesis, Bloody / black stool : denies: Dysuria, Frequency, Hesitancy Skin: denies: Rash Musculoskeletal: denies: Neck pain, Back pain Neurologic: reports: Headache (mild, holocranial, gradual onset) PD PAST MEDICAL HISTORY - Past Medical History Cardiovascular: None Respiratory: None Neuro: None Endocrine/Autoimmune: None GI: GERD HEENT: None Psych: None Musculoskeletal: Osteoarthritis, Osteoporosis, Fatigue, Scoliosis, Chronic back pain Derm: None - Past Surgical History Past Surgical History: No General: Cholecystectomy Ortho: Other HEENT: Tonsil/Adenoidectomy - Present Medications Home Medications: Ambulatory Orders Medication Instructions Recorded Confirmed Gabapentin 300 mg PO QPM 08/07/15 08/07/15 oxyCODONE/ACET 5/325 [Percocet 5 1 tab PO DAILY PRN 08/07/15 08/07/15 mg/325 mg] Metoclopramide [Reglan] 10 mg PO Q6H PRN #14 tablet 03/04/18 predniSONE [Prednisone] 40 mg PO DAILY 3 Days #8 tablet 03/04/18 - Allergies Allergies/Adverse Reactions: Allergies Allergy/AdvReac Type Severity Reaction Status Date / Time Sulfa (Sulfonamide Allergy Intermediate Hives Verified 07/04/21 13:17 Antibiotics) - Social History Does the pt smoke?: No Smoking Status: Never smoker Does the pt drink ETOH?: No Does the pt have substance abuse?: No - Immunizations Immunizations are current?: Yes - POLST Patient has POLST: No PD ED PE NORMAL - Vitals Vital signs reviewed: Yes - General General: Alert and oriented X 3, No acute distress - HEENT HEENT: Other (dry lips and tongue) - Neck Neck: Supple, no meningeal sign - Cardiac Cardiac: RRR - Respiratory Respiratory: No respiratory distress, Clear bilaterally - Abdomen Abdomen: Soft, Non tender, Non distended - Derm Derm: Warm and dry - Neuro Neuro: Alert and oriented X 3, fundraiser 2-12 intact, No motor deficit, No sensory deficit, Normal speech Eye Opening: Spontaneous Motor: Obeys Commands Verbal: Oriented GCS Score: 15 Results - Vitals Vitals: Vital Signs - 24 hr 07/04/21 13:18 Temperature 36.9 C Heart Rate 85 Respiratory 18 Rate Blood Pressure 157/90 H O2 Saturation 100 Oxygen O2 Source Room air - Labs Labs: Laboratory Tests 07/04/21 07/04/21 14:15 14:15 WBC 3.7 L RBC 4.61 Hgb 15.0 Hct 44.2 MCV 95.9 MCH 32.5 H MCHC 33.9 RDW 11.8 L Plt Count 242 MPV 10.2 Neut # (Auto) 2.6 Lymph # (Auto) 0.8 L [place] # (Auto) 0.3 Eos # (Auto) 0.0 Baso # (Auto) 0.0 Absolute Nucleated RBC 0.00 Nucleated RBC % 0.0 Sodium 140 Potassium 3.6 Chloride 102 Carbon Dioxide 25 Anion Gap 13.0 BUN 11 Creatinine 0.7 Estimated GFR (MDRD) 85 L Glucose 84 Calcium 9.0 Total Bilirubin 0.9 AST 21 ALT 13 Alkaline Phosphatase 61 Total Protein 7.0 Albumin 4.1 Globulin 2.9 Albumin/Globulin Ratio 1.4 Lipase 31 PD MEDICAL DECISION MAKING - ED course Complexity details: reviewed results, re-evaluated patient, considered differential, d/w patient ED course: Patient is well-appearing, nontoxic. Afebrile. Given IV fluids, headache resolved, body aches resolved, lightheadedness resolved. Not a candidate for Paxil of it at this time as she is greater than 5 days from the onset of symptoms. Patient does not meet any criteria for antibiotics. We will have her continue supportive care at home and follow-up with her doctor. No hypoxia. No respiratory distress. Patient counseled regarding signs and symptoms for which I believe and urgent re-evaluation would be necessary. Patient with good understanding of and agreement to plan and is comfortable going home at this time This document was made in part using voice recognition software. While efforts are made to proofread this document, sound alike and grammatical errors may occur. Departure - Departure Disposition: 01 Home, Self Care Clinical Impression: COVID-19, Dehydration Diarrhea Qualifiers: Diarrhea type: unspecified type Qualified Code(s): R19.7 - Diarrhea, unspecified Condition: Good Instructions: ED Viral Syndrome Follow-Up: Adriel Ross MD [Primary Care Provider] - Within 1 week Comments: Drink plenty of fluids and rest. Return if you worsen. This should improve o paulo the next week.
[2021-07-04 14:21] LABS: BASOPHILS % (AUTO) 0.3 %; EOSINOPHILS % (AUTO) 0.3 %; HCT - HEMATOCRIT 44.2 % (37.0-47.0); LYMPHOCYTES # (AUTO) 0.8 10^3/uL (1.5-3.5); LYMPHOCYTES % (AUTO) 21.6 %; MEAN CORPUSCULAR HEMOGLOBIN 32.5 pg (27.0-31.0); MEAN CORPUSCULAR HGB CONC 33.9 g/dL (32.0-36.0); MEAN CORPUSCULAR VOLUME 95.9 fL (81.0-99.0); MEAN PLATELET VOLUME 10.2 fL (7.9-10.8); MONOCYTES # (AUTO) 0.3 10^3/uL (0.0-1.0); MONOCYTES % (AUTO) 7.3 %; NEUTROPHILS # (AUTO) 2.6 10^3/uL (1.5-6.6); NEUTROPHILS % (AUTO) 70.2 %; PLT - PLATELET COUNT 242 10^3/uL (130-450); RED BLOOD COUNT 4.61 10^6/uL (4.20-5.40); RED CELL DISTRIBUTION WIDTH 11.8 % (12.0-15.0); WHITE BLOOD COUNT 3.7 x10^3/uL (4.8-10.8)
[2021-07-04 14:35] LABS: ALBUMIN 4.1 g/dL (3.2-5.5); ALBUMIN/GLOBULIN RATIO 1.4 (1.0-2.2); BILIRUBIN,TOTAL 0.9 mg/dL (0.2-1.0); CREATININE 0.7 mg/dL (0.4-1.0); POTASSIUM 3.6 mmol/L (3.5-5.0)
[2021-07-04 16:01] VITALS: BP 151/72
== END 2021-07-04 16:19 | disposition home or self-care (01) ==
LOC: ED 13:04
DX: U07.1 COVID-19 (principal); E86.0 Dehydration
CPT/HCPCS: 36415; 80053; 83690; 85025; 99284

== ENCOUNTER 2022-08-23 09:42 | Outpatient (CLI) | payer OTHER ==
--- NOTE | 2022-08-23 11:15 | DEXA Report ---
PROCEDURE: Dexa Spine and/or Hip INDICATIONS: POST MENOPAUSAL TECHNIQUE: Dual energy x-ray absorptiometry (DXA) was performed on a [employer] System. Regions measur ed are the AP Spine, femoral neck, and if needed forearm. COMPARISON: 11/20/2017 FINDINGS: Lumbar Spine: Bone Mineral Density 0.84 g/cm/cm,T score -2.8. Previously -2.7 Left Femoral Neck: Bone Mineral Density 0.74 g/cm/cm, T score -2.2. Previously -1.9 Left Hip: Bone Mineral Density 0.77 g/cm/cm,T score -1.9. Previously -1.6 (T score greater or equal to -1.0: NORMAL) (T score from -1.1 to -2.4: OSTEOPENIA) (T score less than or equal to -2.5 to: OSTEOPOROSIS) Impression: By WHO criteria, this patient has osteoporosis. Osteoporosis of the lumbar spine. Osteopenia of the hip. T-scores are slightly decreased compared to 2018 imaging. Patients with diagnosis of osteoporosis or osteopenia should have regular bone mineral density assess ment. For those eligible for Medicare, routine testing is allowed once every 2 years. Testing frequ ency can be increased for patients who have rapidly progressing disease or for those who are receivin g medical therapy to restore bone mass. Reviewed by: Barak Kelsey MD on 08/23/2022 11:12 AM PDT Approved by: Barak Kelsey MD on 08/23/2022 11:12 AM PDT Station ID: [id number]
== END 2022-08-23 09:43 | disposition home or self-care (01) ==
LOC: DI 09:42
PROVIDERS: ATTEND Family Medicine
DX: M81.0 Age-related osteoporosis without current pathological fracture (principal); Z78.0 Asymptomatic menopausal state

== ENCOUNTER 2022-09-27 08:20 | Outpatient (CLI) | payer OTHER ==
[2022-09-27 08:33] LABS: BASOPHILS # (AUTO) 0.1 10^3/uL (0.0-0.1); BASOPHILS % (AUTO) 1.2 %; EOSINOPHILS # (AUTO) 0.1 10^3/uL (0.0-0.7); EOSINOPHILS % (AUTO) 1.2 %; HCT - HEMATOCRIT 43.8 % (37.0-47.0); HGB - HEMOGLOBIN 14.4 g/dL (12.0-16.0); LYMPHOCYTES % (AUTO) 24.2 %; MEAN CORPUSCULAR HGB CONC 32.9 g/dL (32.0-36.0); MEAN CORPUSCULAR VOLUME 94.4 fL (81.0-99.0); MEAN PLATELET VOLUME 9.4 fL (7.9-10.8); MONOCYTES # (AUTO) 0.3 10^3/uL (0.0-1.0); MONOCYTES % (AUTO) 8.4 %; NEUTROPHILS # (AUTO) 2.6 10^3/uL (1.5-6.6); NEUTROPHILS % (AUTO) 64.8 %; PLT - PLATELET COUNT 245 10^3/uL (130-450); RED BLOOD COUNT 4.64 10^6/uL (4.20-5.40); WHITE BLOOD COUNT 4.1 x10^3/uL (4.8-10.8)
[2022-09-27 08:51] LABS: ALBUMIN 4.2 g/dL (3.2-5.5); ALBUMIN/GLOBULIN RATIO 1.5 (1.0-2.2); ALKALINE PHOSPHATASE 48 IU/L (42-121); ALT ALANINE AMINOTRANSFERASE 11 IU/L (10-60); AST ASPARTATE AMINOTRANSFERASE 21 IU/L (10-42); BILIRUBIN,TOTAL 0.7 mg/dL (0.2-1.0); BUN - BLOOD UREA NITROGEN 18 mg/dL (6-20); CALCIUM 9.4 mg/dL (8.5-10.3); CARBON DIOXIDE - CO2 29 mmol/L (21-32); CHLORIDE 107 mmol/L (101-111); CHOL/HDL RATIO 4.1 (<4.4); CHOLESTEROL 228 mg/dL; CREATININE 0.8 mg/dL (0.4-1.0); GFR - MDRD 72 (>89); GLUCOSE 105 mg/dL (70-100); HDL CHOLESTEROL 56 mg/dL; LDL CHOLESTEROL,CALCULATED 152 mg/dL; LDL/HDL RATIO 2.7 (<4.4); POTASSIUM 4.5 mmol/L (3.5-5.0); SODIUM 141 mmol/L (135-145); TRIGLYCERIDES 98 mg/dL; VLDL CHOLESTEROL 20 mg/dL
[2022-09-27 09:04] LABS: THYROID STIMULATING HORMONE 1.66 uIU/mL (0.34-5.60)
[2022-09-27 09:05] LABS: FREE T3 3.65 pg/mL (2.5-3.9)
[2022-09-27 09:06] LABS: FREE T4 (FREE THYROXINE) 0.79 ng/dL (0.58-1.64)
== END 2022-09-27 08:21 | disposition home or self-care (01) ==
LOC: LAB 08:20
PROVIDERS: ATTEND Family Medicine
DX: M11.80 Other specified crystal arthropathies, unspecified site (principal); M79.7 Fibromyalgia; M17.12 Unilateral primary osteoarthritis, left knee; M54.12 Radiculopathy, cervical region; K59.09 Other constipation; K21.9 Gastro-esophageal reflux disease without esophagitis
CPT/HCPCS: 36415; 80053; 80061; 83721; 84439; 84443; 84481; 85025

== ENCOUNTER 2022-11-30 08:24 | Day surgery (SDC) | payer OTHER ==
[2022-11-30] MEDS ORDERED: LACTATED RINGERS 1,000 ML IV ONE ×2 (08:50→11:15)
--- NOTE | 2022-11-30 09:57 | ANESTHESIA ---
Pre-Anesthesia VS, & Labs - Diagnosis screening, GERD - Procedure egd, colonoscopy Vital Signs: Temp Pulse Resp BP Pulse Ox O2 Flow Rate 36.2 C L 78 16 140/84 H 100 11/30/22 08:46 11/30/22 08:46 11/30/22 08:46 11/30/22 08:46 11/30/22 08:46 Height: 5 ft 6 in Weight (kg): 62.3 kg Body Mass Index: 22.1 BMI Classification: Normal - NPO >8 hours Last Fluid Intake: am prep - Is Patient ?: No - Lab Results Lab results reviewed: Yes Home Medications and Allergies Home Medications: Ambulatory Orders Baclofen 10 mg ORAL TID 11/30/22 Omeprazole 40 mg ORAL DAILY 11/30/22 traMADol [Ultram] 50 mg PO BID 11/30/22 Gabapentin 300 mg PO TID 08/07/15 Baclofen 10 mg ORAL TID 11/30/22 Omeprazole 40 mg ORAL DAILY 11/30/22 traMADol [Ultram] 50 mg PO BID 11/30/22 Allergies/Adverse Reactions: Allergies Allergy/AdvReac Type Severity Reaction Status Date / Time Sulfa (Sulfonamide Allergy Intermediate Hives Verified 07/04/21 13:17 Antibiotics) Anes History & Medical History - Anesthetic History Anesthesia Complications: reports: No previous complications Family history of Anesthesia Complications: Denies Family history of Malignant Hyperthermia: Denies - Medical History Cardiovascular: reports: None Pulmonary: reports: None Gastrointestinal: reports: GERD Urinary: reports: Kidney stones Neuro: reports: None Musculoskeletal: reports: Osteoarthritis, Osteoporosis, Fatigue, Scoliosis, Chronic back pain Endocrine/Autoimmune: reports: None Skin: reports: None Smoking Status: Never smoker History of Cancer?: No - Surgical History General: reports: Cholecystectomy Eyes Ears Nose Throat (EENT): reports: Tonsil/Adenoidectomy Orthopedic: reports: Other Exam General: Alert, Oriented x3, Cooperative Dental: WNL Mouth Openin Fingerbreadth Neck Mobility: Normal Mallampati classification: III Respiratory: Lungs clear, Normal breath sounds, No respiratory distress Cardiovascular: Regular rate Plan Anesthesia Type: Total IV Consent for Procedure(s) Verified and Reviewed: Yes Code Status: Attempt Resuscitation ASA classification: 2-Mild systemic disease Is this case an emergency?: No
[2022-11-30] MEDS ORDERED: PROPOFOL 500 MG/50 ML 500 MG/50 ML VIAL ONE (10:15)
[2022-11-30] MEDS ORDERED: MIDAZOLAM 2 MG/2 ML VIAL ONE (10:17)
--- NOTE | 2022-11-30 10:29 | HISTORY & PHYSICAL EXAMINATION ---
Chief Complaint - Chief Complaint Chief Complaint: here for egd and colonoscopy History of Present Illness - History Obtained From Records Reviewed: yes History obtained from: pt Exam Limitations: none - History of Present Illness HPI Comment/Other: chronic reflux with heartburn. on omeprazole for years. last colonoscopy 12 to 13 years ago. chronic constipation. no anemia History - Past Medical History Cardiovascular: reports: None Respiratory: reports: None Neuro: reports: None Endocrine/Autoimmune: reports: None GI: reports: GERD : reports: Kidney stones HEENT: reports: None Psych: reports: None Musculoskeletal: reports: Osteoarthritis, Osteoporosis, Fatigue, Scoliosis, Chronic back pain Derm: reports: None MRSA Hx?: No - Past Surgical History General: reports: Cholecystectomy Ortho: reports: Other HEENT: reports: Tonsil/Adenoidectomy - POLST Patient has POLST: No Meds/Allgy - Home Medications Home Medications: Ambulatory Orders Medication Instructions Recorded Confirmed Gabapentin 300 mg PO TID 08/07/15 11/30/22 Baclofen 10 mg ORAL TID 11/30/22 11/30/22 Omeprazole 40 mg ORAL DAILY 11/30/22 11/30/22 traMADol [Ultram] 50 mg PO BID 11/30/22 11/30/22 - Allergies Allergies/Adverse Reactions: Allergies Allergy/AdvReac Type Severity Reaction Status Date / Time Sulfa (Sulfonamide Allergy Intermediate Hives Verified 07/04/21 13:17 Antibiotics) Review of Systems - Other Findings Other Findings: 10 pt ros as above otherwise unremarkable Exam - Vital Signs Vital Signs: Vital Signs x48h Temp Pulse Resp BP Pulse Ox 11/30/22 08:46 36.2 C L 78 16 140/84 H 100 - Physical Exam General Appearance: positive: No acute distress, Alert ENT: positive: No signs of dehydration Neck: positive: No JVD, Trachea midline Respiratory: positive: No respiratory distress Cardiovascular: positive: Regular rate & rhythm Abdomen: positive: Non-tender, No distention Neurologic/Psychiatric: positive: Oriented x3 Conclusion/Plan - Problem List (1) Colon cancer screening Conclusion/Plan: plan colonoscopy and egd for progression of chronic gerd symptoms. parq held and consent obtained - Lab Results Lab results reviewed: Yes
[2022-11-30 11:05] VITALS: O2SAT 100
[2022-11-30 11:55] VITALS: BP 132/73
--- NOTE | 2022-11-30 12:01 | ANESTHESIA POST OP EVALUATION ---
Anesthesia Post Eval - Post Anesthesia Eval Vitals: Last Vital Signs Temp 36.6 C 11/30/22 11:15 Pulse 62 11/30/22 11:46 Resp 18 11/30/22 11:46 BP 132/73 H 11/30/22 11:46 Pulse Ox 100 11/30/22 11:46 O2 Flow Rate CV Function Including HR & BP: Stable Pain Control: Satisfactory Nausea & Vomiting: Negative Mental Status: Baseline Respiratory Status: Airway Patent Hydration Status: Satisfactory Anesthesia Complications: None
== END 2022-11-30 08:25 | disposition home or self-care (01) ==
LOC: SDS 08:24
PROVIDERS: ATTEND Surgery
PROC: 0DB58ZX Excision of Esophagus, Via Natural or Artificial Opening Endoscopic, Diagnostic (ICD-10-PCS; principal; 2022-11-30 09:45)
PROC: 0DB68ZX Excision of Stomach, Via Natural or Artificial Opening Endoscopic, Diagnostic (ICD-10-PCS; 2022-11-30 09:45)
DX: Z12.11 Encounter for screening for malignant neoplasm of colon (principal); K21.9 Gastro-esophageal reflux disease without esophagitis; K59.09 Other constipation; K31.7 Polyp of stomach and duodenum
CPT/HCPCS: 43239; 45378; J7120

== ENCOUNTER 2023-05-16 08:15 | Outpatient (CLI) | payer OTHER ==
--- NOTE | 2023-05-17 09:01 | Mammography Report ---
BILATERAL DIGITAL SCREENING MAMMOGRAM 3D/2D: 05/16/2023 CLINICAL: Routine screening. Comparison is made to exams dated: 04/20/2022 mammogram, 12/20/2016 mammogram, 05/27/2015 mammogram, an d 05/20/2013 mammogram - [facility]. There are scattered areas of fibroglandular density in both breasts (category b / 25%-50% glandular t issue). There is a biopsy clip in the right breast. No significant masses, calcifications, or other findings are seen in either breast. There has been no significant interval change. IMPRESSION: NEGATIVE There is no mammographic evidence of malignancy. A 1 year screening mammogram is recommended. Based on the Tyrer Cuzick model (a risk assessment model) the patient's lifetime risk is 13.2% and he r 10 year risk is 6.2%. According to the ACR, ACS, and NCCN guidelines, an annual breast MRI exam delmar ng with mammogram is recommended if the patient's lifetime risk is 20% or greater. This exam was interpreted at Station ID: [id number]. NOTE: For mammograms, a report in lay terms will be sent to the patient. Approximately 15% of breast malignancies will not be visualized mammographically. In the management of a palpable breast mass, a negative mammogram must not discourage biopsy of a clinically suspicious lesion. Electronically Signed By: Chito ledezma/stephon:05/16/2023 16:54:49 letter sent: No_Letter ACR BI-RADS Category 1: Negative 3341F PARENCHYMAL PATTERN: (A) - The breast(s) demonstrate(s) scattered fibroglandular densities. BI-RADS CATEGORY: (1) - 1 Mammogram [id number] 1 year screening LATERALITY: (B)
== END 2023-05-16 08:16 | disposition home or self-care (01) ==
LOC: DI 08:15
DX: Z12.31 Encounter for screening mammogram for malignant neoplasm of breast (principal); R92.323 Mammographic fibroglandular density, bilateral breasts

== ENCOUNTER 2023-12-19 12:19 | Outpatient (CLI) | payer OTHER ==
[2023-12-19 12:34] LABS: BASOPHILS # (AUTO) 0.1 10^3/uL (0.0-0.1); BASOPHILS % (AUTO) 1.1 %; EOSINOPHILS % (AUTO) 0.7 %; HCT - HEMATOCRIT 45.6 % (37.0-47.0); HGB - HEMOGLOBIN 14.4 g/dL (12.0-16.0); LYMPHOCYTES # (AUTO) 1.3 10^3/uL (1.5-3.5); LYMPHOCYTES % (AUTO) 28.8 %; MEAN CORPUSCULAR HEMOGLOBIN 30.8 pg (27.0-31.0); MEAN CORPUSCULAR HGB CONC 31.6 g/dL (32.0-36.0); MEAN CORPUSCULAR VOLUME 97.6 fL (81.0-99.0); MEAN PLATELET VOLUME 10.1 fL (7.9-10.8); MONOCYTES # (AUTO) 0.3 10^3/uL (0.0-1.0); MONOCYTES % (AUTO) 6.9 %; NEUTROPHILS # (AUTO) 2.8 10^3/uL (1.5-6.6); NEUTROPHILS % (AUTO) 62.5 %; PLT - PLATELET COUNT 226 10^3/uL (130-450); RED BLOOD COUNT 4.67 10^6/uL (4.20-5.40); RED CELL DISTRIBUTION WIDTH 12.8 % (12.0-15.0); WHITE BLOOD COUNT 4.5 x10^3/uL (4.8-10.8)
[2023-12-19 13:03] LABS: THYROID STIMULATING HORMONE 2.05 uIU/mL (0.34-5.60)
[2023-12-19 13:23] LABS: ALBUMIN 4.4 g/dL (3.2-5.5); ALBUMIN/GLOBULIN RATIO 2.1 (1.0-2.2); ALKALINE PHOSPHATASE 58 IU/L (42-121); ALT ALANINE AMINOTRANSFERASE 7 IU/L (10-60); AST ASPARTATE AMINOTRANSFERASE 17 IU/L (10-42); BILIRUBIN,TOTAL 0.6 mg/dL (0.2-1.0); BUN - BLOOD UREA NITROGEN 10 mg/dL (6-20); CALCIUM 9.6 mg/dL (8.5-10.3); CARBON DIOXIDE - CO2 31 mmol/L (21-32); CHLORIDE 104 mmol/L (101-111); CHOL/HDL RATIO 4.6 (<4.4); CHOLESTEROL 215 mg/dL; CREATININE 0.8 mg/dL (0.6-1.3); GFR - MDRD 72 (>89); GLUCOSE 93 mg/dL (74-104); HDL CHOLESTEROL 47 mg/dL; LDL CHOLESTEROL,CALCULATED 134 mg/dL; LDL/HDL RATIO 2.9 (<4.4); POTASSIUM 4.6 mmol/L (3.5-4.5); SODIUM 139 mmol/L (135-145); TOTAL PROTEIN 6.5 g/dL (6.4-8.9); TRIGLYCERIDES 172 mg/dL; VLDL CHOLESTEROL 34 mg/dL
--- NOTE | 2023-12-19 16:36 | XRAY Report ---
PROCEDURE: Shoulder 2+V LT INDICATIONS: IMPINGEMENT SYNDROME OF LEFT SHOULDER TECHNIQUE: 3 views of the shoulder were acquired. COMPARISON: None. FINDINGS: Diffuse osseous demineralization. No fracture or dislocation. Reduced acromiohumeral interval, which can be seen with rotator cuff pathology. Mild glenohumeral and acromioclavicular osteoarthritis. IMPRESSION: 1.Reduced acromiohumeral interval, which can be seen with rotator cuff pathology. 2.No fracture or dislocation. Reviewed by: Tod Lazcano MD on 12/19/2023 4:35 PM PDT Approved by: Tod Lazcano MD on 12/19/2023 4:35 PM PDT Station ID: [id number]
== END 2023-12-19 12:20 | disposition home or self-care (01) ==
LOC: LAB 12:19
PROVIDERS: ATTEND Family Medicine
DX: M72.2 Plantar fascial fibromatosis (principal); M79.7 Fibromyalgia; M17.12 Unilateral primary osteoarthritis, left knee; K21.9 Gastro-esophageal reflux disease without esophagitis; D72.810 Lymphocytopenia; E55.9 Vitamin D deficiency, unspecified; M81.0 Age-related osteoporosis without current pathological fracture; M75.42 Impingement syndrome of left shoulder
CPT/HCPCS: 36415; 80053; 80061; 82306; 83721; 84443; 85025